=== PATIENT | male | born 2005 | race Caucasian/White ===

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

== ENCOUNTER 2023-01-31 23:07 | Emergency (ER) | payer BC, SELFPAY ==
[2023-01-31 23:11] VITALS: BP 172/91; PULSE 92; RESP 18; TEMP 37; O2SAT 96
[2023-01-31 23:13] VITALS: BP 172/91; PULSE 92; RESP 18; TEMP 37; O2SAT 96
--- NOTE | 2023-01-31 23:39 | ED.GENADUL_ITS ---
Discharge Plan Disposition Patient Disposition: Home Condition: Good Discharge Details Clinical Impression: Pilonidal abscess Primary Care Provider: [facility] Provider: Farheen Fournier Home Meds and New Rx's Prescriptions: New cephalexin 500 mg capsule 500 mg PO QID 7 Days Qty: 28 0RF No Action ibuprofen 600 mg Tablet 600 mg PO Q6H PRN Discharge Instructions Instructions: Pilonidal Cyst (ED) Additional Instructions: warm water sitz baths three times per day remove hair in the area take antibiotics as prescribed referral sent to general surgery for follow up and re-evaluation Discharge Data Discharge Date/Time-TO BE ENTERED AT DEPARTURE: 01/31/23 23:56 Medical Decision Making Emergent evaluation of pilonidal inflammation. Area is spontaneously draining. There is no significant cellulitis. Unlikely the perianal or perirectal abscess given the location. Because it is already spontaneously draining, will not perform additional incision at this time. Will start Keflex. Pain control. Recommended hair removal. Referred to general surgery for definitive management. Medical Records Medical records reviewed: Yes I reviewed the patient's medical records. HPI General Date/Time Provider Initiated Documentation: 01/31/23 23:08 . Limitations to Documentation: no limitations . Information obtained by: patient . HPI Narrative: 17-year-old gentleman without significant past medical history presents for evaluation of tailbone pain. Reports that the pain started 3 days ago. Hurts to sit down. It is located at the the tailbone area. Does not radiate. No pain with bowel movement. No fever or abdominal pain. He reports that today it started draining material. This is never happened before. Related Data Home Medications Medication Instructions Recorded Confirmed ibuprofen 600 mg tablet 600 mg PO Q6H PRN 04/16/22 04/16/22 cephalexin 500 mg capsule 500 mg PO QID 7 days #28 caps 01/31/23 Previous Rx's Medication Instructions Recorded cephalexin 500 mg capsule 500 mg PO QID 7 days #28 caps 01/31/23 Allergies Allergy/AdvReac Type Severity Reaction Status Date / Time No Known Allergies Allergy Unverified 04/16/22 15:44 General Stated Complaint: [facility]Medical CHOLO: 3 PFSH All Active Problems Pilonidal abscess (Acute) Medical History No significant past medical history Social History Smoking/Tobacco Use Status: Never Smoking risk assessment performed?: Yes Alcohol Intake: never Substance use type: marijuana Do you feel safe at home: Yes Do you feel safe in your relationship?: Yes Exam Narrative Exam Narrative: Review of Systems: All systems reviewed & are unremarkable except as noted in HPI and below Well-developed, no acute distress NACT PERRL, normal conjunctiva RRR Unlabored respiratory effort Nondistended abdomen Gluteal cleft with area of induration and tenderness, spontaneous drainage, no significant cellulitis Extremities w/o deformity, no cyanosis, no edema No rashes or lesions. no focal neurologic deficits Appropriate mood and affect Course Vital Signs Vital signs: Vital Signs Temperature 37 C 01/31/23 23:11 Pulse 92 H 01/31/23 23:11 Respiratory Rate 18 01/31/23 23:11 Blood Pressure 172/91 H 01/31/23 23:11 Pulse Oximetry 96 01/31/23 23:11 Temperature 37 C 01/31/23 23:13 Temperature Source Temporal Artery Scan 01/31/23 23:13 Pulse 92 H 01/31/23 23:13 Respiratory Rate 18 01/31/23 23:13 Respiratory Effort Normal 01/31/23 23:13 Respiratory Depth Normal 01/31/23 23:13 Respiratory Pattern Normal 01/31/23 23:13 Blood Pressure 172/91 H 01/31/23 23:13 Pulse Oximetry 96 01/31/23 23:13 Oxygen Delivery Method Room Air 01/31/23 23:13 Pain Level 8 01/31/23 23:13 PAWSS Have you Been Recently Intoxicated or Drunk Within the Last 30 days?: No Have you Ever Experienced Previous Episodes of Alcohol Withdrawal?: No Have you ever Experienced Withdrawal Seizures?: No Have you ever Experienced Delirium Tremens(DT)s?: No Have you ever undergone Alcohol Rehabilitation Treatment (i.e, inpt ot outpatient treatment programs)?: No Have you ever Experienced Blackouts?: No Have you ever Combined Alcohol with other Downers within the last 90 days?: No Have you ever Combined Alcohol with any other Substance of Abuse during the last 90 days?: No Positive Blood Alcohol level on Presentation? [PCS.BAL]: Unable to Obtain Evidence of Increased Autonomic Activity (i.e. HR>120, tremor, sweating, agitation, nausea)?: Unable to Obtain Result: 0
--- NOTE | 2023-01-31 23:50 | NUR.NOTE ---
Pt placed on care management list for referral to general surgery for Pilonidal Abscess to be seen within 2weeks per ED Dr. Fournier
[2023-01-31] MEDS: Cephalexin 500 MG CAP PO (23:52)
[2023-01-31] MEDS: traMADol 50 MG TAB PO (23:52)
[2023-01-31 23:56] VITALS: PULSE 75; RESP 18; O2SAT 95
== END 2023-01-31 23:56 | disposition home or self-care (01) ==
LOC: ER 23:57
PROVIDERS: Emergency Provider Emergency Medicine
DX: L05.01 Pilonidal cyst with abscess (principal)
CPT/HCPCS: 99282

== ENCOUNTER → 2023-06-24 09:29 | Outpatient (CLI) | payer BC, SELFPAY ==
--- NOTE | 2023-06-24 15:11 | DI.RAD_ITS ---
Exam(s) XR SHOULDER RT COMPLETE 2+V EXAM: XR SHOULDER RT COMPLETE 2+V CLINICAL HISTORY: PAIN IN RT ACROMIOCLAVICULAR JOINT, M25.511. TECHNIQUE: 2D digital imaging was performed of the right shoulder. Five images were obtained. AP, Grashey, Y-view and axillary views were obtained. COMPARISON: No exams were available for comparison FINDINGS: BONES: No acute fracture is present. No bony destructive lesion is seen. JOINTS: No dislocation present. The acromioclavicular and glenohumeral joints are unremarkable. SOFT TISSUE: Normal. IMPRESSION: Unremarkable radiographs of the right shoulder. DATA REPOSITORY: RADIATION DOSE DELIVERED:
== END ==
PROVIDERS: Visit Provider Orthopaedic Surgery
DX: M25.511 Pain in right shoulder (principal)
CPT/HCPCS: 73030

== ENCOUNTER 2023-11-09 14:52 | Outpatient (CLI) | payer BC, SELFPAY ==
--- NOTE | 2023-11-09 14:45 | RT.EKG_ITS ---
APPROVED REPORT Exam: Resting ECG Reason for Exam: chest discomfort Patient Location: O HR:68 bpm ECG Measurements Heart Rate 68 AXIS NC 134 P 39 QRSd 109 QRS 74 QT 371 T 56 QTc 395 Conclusion Sinus rhythm...normal P axis, V-rate 50- 99 ST elev, probable normal early repol pattern...ST elevation, age<55
== END 2023-11-09 14:53 | disposition home or self-care (01) ==
PROVIDERS: Visit Provider Physician Assistant
DX: R07.89 Other chest pain (principal)
CPT/HCPCS: 93010

== ENCOUNTER 2024-11-13 07:44 | Outpatient (CLI) | payer BC, SELFPAY ==
--- NOTE | 2024-11-13 07:23 | DI.RAD_ITS ---
Exam(s) XR CERVICAL SPINE COMP 4-5V EXAM: XR CERVICAL SPINE COMP 4-5V CLINICAL HISTORY: evaluate pathology,CERVICAL PAIN,M54.2. TECHNIQUE: 2D digital imaging was performed. COMPARISON: No exams were available for comparison FINDINGS: Five views There is no evidence of fracture, listhesis, nor offset of the spinal laminar line. There is no significant disc space narrowing. No facet arthropathy. No facet malalignment. There are no cervical ribs. Bone density is normal. No Luschka joint osteophytes evident on the oblique views On the lateral view there is sclerotic density noted in the T1 vertebral body, possibly significant. This is less evident on the oblique views There is straightening of the cervical curvature which is probably related to muscle spasm. IMPRESSION: No acute osseous findings. There is some straightening of the cervical curvature which is probably related to muscle spasm or positioning. No significant disc space narrowing. DATA REPOSITORY: RADIATION DOSE DELIVERED:
== END 2024-11-13 08:04 ==
LOC: DI 07:44
PROVIDERS: Visit Provider Nurse Practitioner Family
DX: M54.2 Cervicalgia (principal)
CPT/HCPCS: 72050